=== PATIENT | male | born 1990 | race Caucasian/White ===

== ENCOUNTER 2023-11-18 16:58 | Emergency (ER) | payer OTHER ==
[~2023-11-18] VITALS: Ht 162.6 cm; Wt 77.1 kg
[2023-11-18] MEDS ORDERED: Ketorolac Tromethamine 30mg Vial IM ONE (18:05)
== END 2023-11-18 18:42 | disposition home or self-care (01) ==
LOC: ER 16:58
DX: S82.832A Other fracture of upper and lower end of left fibula, initial encounter for closed fracture (principal); X50.1XXA Overexertion from prolonged static or awkward postures, initial encounter
CPT/HCPCS: 29515; 73590; 73610; 96372-59; 99283-25; J1885

== ENCOUNTER 2024-01-26 09:42 | Emergency (ER) | payer OTHER ==
[~2024-01-26] VITALS: Ht 165.1 cm; Wt 81.7 kg
[2024-01-26] MEDS ORDERED: Indomethacin50 MG PO (10:58)
== END 2024-01-26 11:10 | disposition home or self-care (01) ==
LOC: ER 09:42
DX: M10.9 Gout, unspecified (principal); Z59.89 Other problems related to housing and economic circumstances
CPT/HCPCS: 73130; 99283-25

== ENCOUNTER 2024-04-14 09:13 | Emergency (ER) | payer OTHER ==
[~2024-04-14] VITALS: Ht 162.6 cm; Wt 81.7 kg
[~2024-04-14 09:13] MED LIST: Indomethacin50 MG PO
== END 2024-04-14 10:44 | disposition home or self-care (01) ==
LOC: ER 09:13
DX: M25.562 Pain in left knee (principal); Z59.89 Other problems related to housing and economic circumstances
CPT/HCPCS: 73562-LT; 99283-25